=== PATIENT | female | born 1970 | race Caucasian/White ===

== ENCOUNTER 2024-09-07 18:29 | Emergency (ER) | payer BC, SELFPAY ==
[2024-09-07] VITALS (17 sets, daily range): BP systolic 98–196; BP diastolic 34–102; PULSE 70–113; RESP 10–25; O2SAT 98–100
[2024-09-07] MEDS: Ketorolac 15 MG/ML VIAL IVP (18:37)
--- NOTE | 2024-09-07 18:40 | DI.RAD_ITS ---
Exam(s) XR TIB/FIB LT XR FEMUR LT EXAM: XR FEMUR LT CLINICAL HISTORY: trauma; bilat femur pain. TECHNIQUE: 2D digital imaging was performed. Limited AP and lateral views. COMPARISON: None. FINDINGS: Exam is limited by backboard in place. There is mild motion. There is suboptimal penetration. Limi shelly AP view of the hip. Lateral view of the mid to distal femur. Lateral view of the proximal tibia through ankle. BONES: Markedly comminuted fracture of the distal femur. No fracture of the proximal femur. No frac ture visible of the tibia and fibula. No bony destructive lesion is seen. Heel spurs. JOINTS: No dislocation present. Hip, ankle and knee joints are grossly intact. SOFT TISSUE: Swelling anterior to the knee. Some soft tissue air noted at the at the level of the pr oximal tibia. IMPRESSION: Extremely limited exam. Comminuted fracture of the distal femur. DATA REPOSITORY: RADIATION DOSE DELIVERED:
[2024-09-07] MEDS: ACETAMINOPHEN 1,000 MG/100 ML BAG 400 MG IVPB (18:42)
[2024-09-07] MEDS: HYDROmorphone 2 MG/ML SYR 0.5 MG IVP (19:08)
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
--- NOTE | 2024-09-07 19:31 | DI.RAD_ITS ---
Exam(s) XR FEMUR RT EXAM: XR FEMUR RT CLINICAL HISTORY: trauma; bilat femur pain. TECHNIQUE: 2D digital imaging was performed. AP and lateral views. COMPARISON: CR,XR XR FEMUR LT from 09/07/2024 FINDINGS: BONES: Markedly comminuted intra-articular fracture of the distal femur. No fractures are seen in th e hip or proximal femur. No bony destructive lesion is seen. JOINTS: Visualized portion of knee and hip joints are unremarkable. SOFT TISSUE: Normal. IMPRESSION: Markedly comminuted, displaced intra-articular fracture of the distal femur. DATA REPOSITORY: RADIATION DOSE DELIVERED:
--- NOTE | 2024-09-07 19:50 | DI.CT_ITS ---
Exam(s) CT LOWER EXTREMITY RT WO EXAM: CT LOWER EXTREMITY RT WO CLINICAL HISTORY: bilateral lower extremity fractures. TECHNIQUE: Imaging Protocol: Axial computed tomography images with coronal and sagittal reformatted images were created and reviewed. Field of view includes the pelvis through the foot. CONTRAST MATERIAL: Noncontrast COMPARISON: CR,XR XR FEMUR RT from 09/07/[address] LOWER EXTREMITY LT WO from 09/07/2024 FINDINGS: Markedly comminuted and displaced intra-articular fracture of the distal femur. No fractures of the h ip, lower leg, ankle or foot. There is a markedly displaced, markedly comminuted fracture of the dist al femoral metaphysis. There is more than a full shaft with of displacement posteriorly and multiple comminuted fragments. Fracture extends to the articular surface of the lateral femoral condyle and fe moral intercondylar notch Joints: The hip and ankle joints are unremarkable. There is a hemarthrosis of the knee Soft tissues: Soft tissue stranding and hematoma around the distal femoral fracture site. Small Warren 's cyst incidentally noted. Enlarged uterus likely secondary to fibroids. The bladder is unremarkable. The bowel is unremarkable . IMPRESSION: Markedly comminuted, displaced intra-articular fracture of the distal femur with large hemarthrosis. No additional fractures. RADIATION DOSE DELIVERED: Total DLP DATA REPOSITORY: All CT scans at this facility are submitted to the National Radiology Data Registry (NRDR) Dose Index Registry (DIR) with the [employer] ([employer]). RADIATION OPTIMIZATION: All CT scans at this facility use at least one of these dose optimization te chniques: automated exposure control; mA and/or kV adjustment per patient size (includes targeted exa ms where dose is matched to clinical indication); or iterative reconstruction.
--- NOTE | 2024-09-07 19:50 | DI.CT_ITS ---
Exam(s) CT LOWER EXTREMITY LT WO EXAM: CT LOWER EXTREMITY LT WO CLINICAL HISTORY: bilateral lower extremity fractures. TECHNIQUE: Imaging Protocol: Axial computed tomography images with coronal and sagittal reformatted images were created and reviewed. Field of view includes the lower pelvis through metatarsal region. CONTRAST MATERIAL: Noncontrast COMPARISON: CR,XR XR FEMUR LT from 09/07/2024 FINDINGS: Bones: Markedly comminuted fracture extending from the mid femur through the distal metaphysis. Ther e is marked displacement and angulation. There is no definite extension to the articular surface. N o fractures are identified in the hip, proximal femur or tibia and fibula. No acute findings in the ankle and visualized portions of the foot. No cellulitic or osteomyelitic changes are identified. No lytic or sclerotic lesions are identified. Joints: No evidence of dislocation. Mild degenerative changes. Soft Tissues: Air in the soft tissues anterior to the distal tibia and fibula. IMPRESSION: Markedly comminuted and displaced fracture of the mid to distal femur. No extension to the articular surface at the knee. The tibia and fibula, ankle and as well as hip are unremarkable. RADIATION DOSE DELIVERED: Total DLP DATA REPOSITORY: All CT scans at this facility are submitted to the National Radiology Data Registry (NRDR) Dose Index Registry (DIR) with the [employer] ([employer]). RADIATION OPTIMIZATION: All CT scans at this facility use at least one of these dose optimization te chniques: automated exposure control; mA and/or kV adjustment per patient size (includes targeted exa ms where dose is matched to clinical indication); or iterative reconstruction.
--- NOTE | 2024-09-07 20:45 | DI.VRAD_ITS ---
PROCEDURE INFORMATION: Exam: XR Left Tibia and Fibula Exam date and time: 09/07/2024 6:56 PM Age: 54 years old Clinical indication: Other: Possible open L tib/fib; Additional info: Limited exam due to pt's inability to move legs due to femoral breaks and CT ordered as well. TECHNIQUE: Imaging protocol: Radiologic exam of the left tibia and fibula. Views: 2 views. COMPARISON: No relevant prior studies available. FINDINGS: Bones/joints: Posterior and plantar calcaneal spurs. No acute fracture. Soft tissues: Subcutaneous hematoma anterior to the proximal tibia. IMPRESSION: 1. No acute fracture of left tibia and fibula. 2. Calcaneal spurs. Dictated and Authenticated by: Roni Linton MD. Orderin Isaac Snell MD
--- NOTE | 2024-09-07 20:47 | DI.VRAD_ITS ---
PROCEDURE INFORMATION: Exam: XR Right Femur Exam date and time: 09/07/2024 7:11 PM Age: 54 years old Clinical indication: Other: Trauma; Bilat femur pain; Additional info: Limited exam due to pt's inability to move legs due to femoral breaks and CT ordered as well. TECHNIQUE: Imaging protocol: Radiologic exam of the right femur. Views: 2 views. COMPARISON: No relevant prior studies available. FINDINGS: Bones/joints: Mild hip joint degenerative disease. Comminuted impacted distal femoral fracture with moderate fragment displacement and cleavage plane extending to the intercondylar distal femur. Soft tissues: Unremarkable. IMPRESSION: Displaced impacted comminuted intra-articular distal femoral fracture. Dictated and Authenticated by: Roni Linton MD. Orderin Isaac Snell MD
--- NOTE | 2024-09-07 20:48 | DI.VRAD_ITS ---
PROCEDURE INFORMATION: Exam: XR Left Femur Exam date and time: 09/07/2024 6:58 PM Age: 54 years old Clinical indication: Other: Trauma; Bilat femur pain; Additional info: Limited exam due to pt's inability to move legs due to femoral breaks and CT ordered as well. TECHNIQUE: Imaging protocol: Radiologic exam of the left femur. Views: 2 views. COMPARISON: No relevant prior studies available. FINDINGS: Bones/joints: Moderate left hip joint degenerative disease. Comminuted distal femoral fracture without apparent articular involvement. Soft tissues: Unremarkable. IMPRESSION: Comminuted extra-articular distal femoral fracture. Dictated and Authenticated by: Roni Linton MD. Orderin Isaac Snell MD
--- NOTE | 2024-09-07 22:23 | DI.VRAD_ITS ---
PROCEDURE INFORMATION: Exam: CT Left Lower Extremity Exam date and time: 09/07/2024 7:15 PM Age: 54 years old Clinical indication: Other: Bilateral lower extremity fractures; Additional info: Limited exam due to pt's inability to move legs due to femoral breaks and CT ordered as well. TECHNIQUE: Imaging protocol: CT of the left lower extremity without contrast was performed. Total images: [id number] COMPARISON: CR XR FEMUR LT 09/07/2024 6:58 PM FINDINGS: Bones/joints: Knee hemarthrosis. Medially subluxed patella. Fracture distal femoral shaft extending to the supracondylar region. Prominent medial angulation of the proximal end of the fracture and marked comminution involving the distal end. No additional fracture. Heel spurs. Soft tissues: Soft tissue gas medial proximal lower leg consistent with laceration. Subcutaneous varicosities. Density consistent with hemorrhage amongst the fracture fragments. Enlargement of the muscles within the anterolateral compartment of the thigh consistent with muscle contusions. IMPRESSION: Left femur fracture. Dictated and Authenticated by: Meir Caballero MD. Orderin Isaac Snell MD
--- NOTE | 2024-09-07 23:33 | DI.VRAD_ITS ---
PROCEDURE INFORMATION: Exam: CT Right Lower Extremity, Thigh Exam date and time: 09/07/2024 7:15 PM Age: 54 years old Clinical indication: Other: Bilateral lower extremity fractures; Additional info: Limited exam due to pt's inability to move legs due to femoral breaks and CT ordered as well. TECHNIQUE: Imaging protocol: CT of the right lower extremity without contrast was performed. Exam focused on the thigh. COMPARISON: CR XR FEMUR RT 09/07/2024 7:11 PM FINDINGS: Bones/joints: Severely comminuted supracondylar fracture distal right femur with fracture lines extending to the lateral femoral condyle, displaced posteriorly. Moderate hemarthrosis. No other fractures identified. No dislocation. Soft tissues: Normal. IMPRESSION: 1. Severely comminuted supracondylar fracture distal right femur with fracture lines extending to the lateral femoral condyle. 2. Moderate hemarthrosis. Dictated and Authenticated by: Roni Clark MD. Orderin Isaac Snell MD
== END 2024-09-07 20:23 | disposition short-term general hospital (02) ==
LOC: ER 20:29
PROVIDERS: Emergency Provider Physician Assistant
DX: S79.102A Unspecified physeal fracture of lower end of left femur, initial encounter for closed fracture (principal); S79.101A Unspecified physeal fracture of lower end of right femur, initial encounter for closed fracture; S80.812A Abrasion, left lower leg, initial encounter; V86.62XA Passenger of snowmobile injured in nontraffic accident, initial encounter; Y93.29 Activity, other involving ice and snow; Y92.838 Other recreation area as the place of occurrence of the external cause
CPT/HCPCS: 73552; 96374; 96375; 99285; 73590; 73700; J0131; J1171; J1885